=== PATIENT | male | born 1985 | race Caucasian/White ===

== ENCOUNTER 2019-07-08 14:29 | Emergency (ER) | payer OTHER ==
--- NOTE | 2019-07-08 15:16 | EDM.PDOC ---
ED HPI GENERAL MEDICAL PROBLEM - General Chief Complaint: Upper Extremity Injury/Pain Stated Complaint: RT INDEX FINGER INJURY Time Seen by Provider: 07/08/19 14:46 Source of Information: Reports: Patient, RN Notes Reviewed History Limitations: Reports: No Limitations - History of Present Illness INITIAL COMMENTS - FREE TEXT/NARRATIVE: Patient is a 33-year-old male who presents to the ED for evaluation of a right index finger injury. Patient notes that around 9 PM last night, he had his hand near the car door, his son, on the corner and slammed the door shut on his finger. Patient states that he has been taking 600 mg ibuprofen roughly every 2 -3 hours, this is not providing much pain relief. He states that ice seems to help the injury, if he places it just right. He does have quite a bit of tenderness at the PIP joint and DIP joint, and the finger seems to be swollen past the PIP joint. He does appreciate some mild numbness feelings to the tip of his finger, but thinks is due to the swelling. Patient states that he is not really been able to move the finger much, due to the pain. Patient notes he is right-hand dominant. Right Finger-Index Pain Score (Numeric/FACES): 6 - Related Data Allergies Allergy/AdvReac Type Severity Reaction Status Date / Time No Known Allergies Allergy Verified 07/08/19 14:55 Home Meds: Home Meds Acetaminophen/HYDROcodone [[place] 325-5 MG] 1 tab PO Q6H PRN #12 tablet 07/08/19 [Rx] Omeprazole 20 mg PO DAILY 07/08/19 [History] Past Medical History Gastrointestinal History: Reports: GERD - Infectious Disease History Infectious Disease History: Reports: Chicken Pox Social & Family History - Family History Family Medical History: Noncontributory - Tobacco Use Smoking Status *Q: Current Every Day Smoker Years of Tobacco use: 15 Packs/Tins Daily: 0.5 - Caffeine Use Caffeine Use: Reports: Energy Drinks - Recreational Drug Use Recreational Drug Use: No Review of Systems - Review of Systems Review Of Systems: Comprehensive ROS is negative, except as noted in HPI. ED EXAM, GENERAL - Physical Exam Exam: See Below Exam Limited By: No Limitations General Appearance: Alert, WD/WN, No Apparent Distress Respiratory/Chest: No Respiratory Distress, Lungs Clear, Normal Breath Sounds, No Accessory Muscle Use, Chest Non-Tender Cardiovascular: Normal Peripheral Pulses, Regular Rate, Rhythm, No Murmur Peripheral Pulses: 3+: Radial (L), Radial (R) Extremities: Limited Range of Motion (of left index finger at PIP and DIP joint) , Other (Patient's index finger is very tender, over the aspect of the PIP and DIP, both anteriorly and posteriorly. Patient is able to move his hand at the MCP, but is not really able to move his hand at the DIP and PIP much at all. Patient was very hesitant for exam, due to the pain.) Neurological: Alert, Oriented, Normal Cognition, No Motor/Sensory Deficits Psychiatric: Normal Affect, Normal Mood Skin Exam: Warm, Dry, Intact, Normal Color, No Rash ED TRAUMA EXTREMITY PROCEDURES - Joint Reduction Right Fingers Sedation: Digital Block Local Anesthesia - Lidocaine (Xylocaine): 1% Plain Local Anesthesia - Bupivicaine (Marcaine): 0.5% Plain Local Anesthetic Volume: Other (6) Pre-Procedure NV Status: Normal Post-Procedure NV Status: Normal Technique: Traction/Counter Traction Number of Attempts: 1 Post-Reduction Imaging: Completely Reduced, No Fracture Seen Joint Reduction Complications: No (aluminum foam type splint placed after reduction to allow time for tendons to heal) Course - Vital Signs Last Recorded V/S: Last Vital Signs Temp 98.1 F 07/08/19 14:52 Pulse 90 07/08/19 14:52 Resp 18 07/08/19 14:52 BP 161/92 H 07/08/19 14:52 Pulse Ox 98 07/08/19 14:52 - Orders/Labs/Meds Orders: Active Orders 24 hr Category Date Time Status Fingers Second Digit Rt F6 [CR] Stat Exams 07/08/19 15:01 Ordered Fingers Second Digit Rt F6 [CR] Stat Exams 07/08/19 17:03 Ordered Meds: Medications Discontinued Medications Generic Name Dose Route Start Last Admin Trade Name Freq PRN Reason Stop Dose Admin Hydrocodone Bitart/Acetaminophen 2 tab 07/08/19 17:36 [place] 325-5 Mg PO 07/08/19 17:37 ONETIME ONE Bupivacaine HCl 10 ml 07/08/19 16:45 07/08/19 16:52 Sensorcaine-Mpf 0.5% INJECT 07/08/19 16:46 10 ml ONETIME ONE Administration Lidocaine HCl 10 ml 07/08/19 16:45 07/08/19 16:52 Xylocaine 1% INJECT 07/08/19 16:46 10 ml ONETIME ONE Administration - Re-Assessments/Exams Free Text/Narrative Re-Assessment/Exam: 07/08/19 15:15 Patient presents to the ED for evaluation of his right index finger injury. He will get x-rays of the finger. Patient did drive himself to the ER, and is going to try to find himself a ride home, if he should find himself a ride home , will get him something for pain medication, as I do believe he is maxed out on NSAIDs for today's purposes, regarding his reported history. 07/08/19 16:44 X-rays are done, and do demonstrate a dislocation of the distal phalanges, this does appear to be displaced posteriorly, and slightly displaced to the ulnar aspect as well. We will likely move forward with a digital block and try to reduce the finger. Departure - Departure Time of Disposition: 17:42 Disposition: Home, Self-Care 01 Condition: Good Clinical Impression: Closed dislocation of phalanx of hand Qualifiers: Encounter type: initial encounter Qualified Code(s): S63.259A - Unspecified dislocation of unspecified finger, initial encounter - Discharge Information *PRESCRIPTION DRUG MONITORING PROGRAM REVIEWED*: Yes *COPY OF PRESCRIPTION DRUG MONITORING REPORT IN PATIENT JEROME: No Prescriptions: Acetaminophen/HYDROcodone [[place] 325-5 MG] 1 tab PO Q6H PRN #12 tablet PRN Reason: Pain Instructions: Finger or Thumb Dislocation, [id number] Referrals: PCP,None [Primary Care Provider] - Forms: ED Department Discharge Additional Instructions: You have been evaluated in the ED for your right index finger injury. Your x-ray demonstrated a dislocation of the distal finger bone in your right index finger. Please use ice as tolerated to the affected area. Please try to elevate the affected area to relieve swelling. You may take Tylenol 500 mg or ibuprofen 600mg q6 hrs for pain relief. Please do so until you have a tolerable level of pain with activity. Do not exceed 4000mg Tylenol or 3200mg ibuprofen in a 24 hour time period. You were given a prescription for a strong pain medication, hydrocodone/ acetaminophen 5/325mg, please take 1 tab every 6 hours as needed for pain not relieved by Tylenol or ibuprofen alone. Please note this medication does contain Tylenol in it, so do not take more than 4000 mg in a 24-hour time span. These medications can be addictive, so please take as few as possible to achieve adequate pain control. These meds can also be quite constipating, recommend that you increase your oral fluid intake and take a stool softener like MiraLAX while taking these medications. Do not drive while taking this medication. This [place] [facility], you will have to go there tomorrow, Tuesday morning to belt picker this prescription to take as directed. Please try to keep the aluminum foam splint in place to the finger, for 3 weeks , to help allow the tendons time to heal so it does not slip back out of place. Recommend you follow-up with orthopedics, Dr. Sim is our orthopedic surgeon, his office number is [phone]. This is for follow-up and to make sure the tendons are healing as expected. Please return to ED if your symptoms should change or worsen. Sepsis Event Note - Evaluation Sepsis Screening Result: No Definite Risk - Focused Exam Vital Signs: Vital Signs Temp Pulse Resp BP Pulse Ox 07/08/19 14:52 98.1 F 90 18 161/92 H 98 Date Exam was Performed: 07/08/19 Time Exam was Performed: 17:42 - My Orders Last 24 Hours: My Active Orders 07/08/19 15:01 Fingers Second Digit Rt F6 [CR] Stat 07/08/19 17:03 Fingers Second Digit Rt F6 [CR] Stat - Assessment/Plan Last 24 Hours: My Active Orders 07/08/19 15:01 Fingers Second Digit Rt F6 [CR] Stat 07/08/19 17:03 Fingers Second Digit Rt F6 [CR] Stat
[2019-07-08] MEDS ORDERED: Bupivacaine 0.5% 10 ML SDV INJECT ONE (16:45)
[2019-07-08] MEDS ORDERED: Lidocaine 1% 10 ML MDV INJECT ONE (16:45)
[2019-07-08] MEDS ORDERED: Acetaminophen/HYDROcodone 325-5 MG Tab PO ONE (17:36)
--- NOTE | 2019-07-09 07:46 | CR ---
Right 2nd finger: 4 views of the right 2nd finger were obtained. Comparison: Previous finger exam performed earlier on the same day (4:13 PM). Dislocation that was seen on prior study has been reduced. Bony structures are anatomic in alignment. Soft tissue swelling is again noted. Small aden of bone is noted off the anterior DIP joint compatible with minimal chip fracture. Impression: 1. Dislocation has been reduced. 2. Minimal chip fracture off the anterior DIP joint. 3. Soft tissue swelling. Diagnostic code #2 This report was dictated in MDT
--- NOTE | 2019-07-09 07:46 | CR ---
Right 2nd finger: 4 views of the right 2nd finger were obtained. Comparison: No prior finger study is available. Dislocated DIP joint is noted. Distal phalanx is dislocated posteriorly in relation to the middle phalanx. Soft tissue swelling is noted. No additional abnormality is appreciated. Impression: 1. Dislocated DIP joint of the right 2nd finger. Diagnostic code #3 This report was dictated in MDT
== END 2019-07-08 17:50 | disposition home or self-care (01) ==
LOC: JD.ED 14:29
DX: S63.290A Dislocation of distal interphalangeal joint of right index finger, initial encounter (principal); K21.9 Gastro-esophageal reflux disease without esophagitis; Z79.899 Other long term (current) drug therapy
CPT/HCPCS: 26770; 73140; 99283; A9270; J2001; J3490